=== PATIENT | male | born 1990 | race Caucasian/White ===

== ENCOUNTER 2016-08-21 15:57 | Emergency (ER) | payer OTHER ==
[~2016-08-21] VITALS: Ht 180.3 cm; Wt 70.3 kg
--- NOTE | 2016-08-21 16:49 | ED GI/GU/ABDOMINAL COMPLAINT ---
History of Present Illness General Chief Complaint: General Adult Stated Complaint: PT IS A FLARE UP FROM CROHN'S Source: patient Exam Limitations: no limitations Vital Signs & Intake/Output Vital Signs & Intake/Output Vital Signs Date Time Temp Pulse Resp B/P B/P Pulse O2 O2 Flow FiO2 Mean Ox Delivery Rate 08/21 2107 98.3 86 18 128/82 97 Room Air 08/21 1840 97.9 84 18 126/78 97 Room Air 08/21 1602 98.1 85 16 130/85 99 Room Air ED Intake and Output 08/22 0000 08/21 1200 Intake Total 0 Output Total Balance 0 Intake, Oral 0 Patient 155 lb Weight Weight Reported by Patient Measurement Method Allergies Coded Allergies: codeine (MAKES FLAIR UPS OF CROHNS DISEASE WORSE 08/21/16) fentanyl (EFFECTS CHRONS 08/21/16) Reconcile Medications Dicyclomine Hydrochloride (Bentyl) 10 MG CAPSULE 1 CAP PO TID abdominla pain Ondansetron (Zofran Odt) 4 MG TAB.RAPDIS 1 TAB SL TID nausea Tramadol HCl 50 MG TABLET 1 TAB PO TID pain Triage Note: PT STATES HE HAS CROHNS DISEASE AND IS HAVING A FLAIR UP. PT TAKES 6 MPAND FOLIC ACID AND HYCOSOMINE AND ONE OTHER MED FOR CROHNS AND STOPPED TAKING THEM. PT STATES HE WAS IN REMISSION FOR 8MONTHS AND NOW IT STARTED AGAIN Triage Nurses Notes Reviewed? yes Onset: Abrupt Duration: day(s): (2-3) Timing: single episode today Quality/Severity: cramping, sharpness, severe Severity Numbers: 9 Location: epigastric, generalized abdomen Radiation: no radiation Activities at Onset: none Prior Abdominal Problems: similar symptoms (CROHNS) Past Sexual History: Unobtainable at this time No Modifying Factors: none Modifying Factors: Worsens With: eating, movement. Associated Symptoms: abdominal pain, diarrhea, nausea/vomiting HPI: 25-year-old male with a history of Crohn's disease presents complaining of abdominal pain nausea vomiting and bloody diarrhea. He reports nausea vomiting and bloody diarrhea started 2 weeks ago and has been worsening. Abdominal pain started 2 days ago and is located diffusely in the abdomen. He scrubs a pain as sharp stabbing and cramping that is worse with eating any type of movement. Patient reports a history of Crohn's a feeling this is similar to his Crohn's flares in the past. He is currently not taking any medications for Crohn's because he was in remission. He has not been eating for 2 days but has been tolerating some fluids. He has any recent travel sick contacts fever recent antibiotic use. 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 No other associated symptoms. No history of any abdominal surgeries other than cholecystectomy. (TAN STILL PA-C) Past History Travel History Traveled to [place] past 21 day No Medical History Any Pertinent Medical History? see below for history Gastrointestinal: Crohn's disease Surgical History Surgical History: cholecystectomy Psychosocial History What is your primary language Maltese Tobacco Use: Never used ETOH Use: denies use Illicit Drug Use: denies illicit drug use Family History Hx Contributory? Yes (TAN STILL PA-C) Review of Systems Review of Systems Constitutional: Reports: no symptoms. EENTM: Reports: no symptoms. Respiratory: Reports: no symptoms. Cardiovascular: Reports: no symptoms. GI: Reports: see HPI, abdominal pain, diarrhea, nausea, bloody stool, vomiting. Genitourinary: Reports: no symptoms. Musculoskeletal: Reports: no symptoms. Skin: Reports: no symptoms. Neurological/Psychological: Reports: no symptoms. Hematologic/Endocrine: Reports: no symptoms. Immunologic/Allergic: Reports: no symptoms. All Other Systems: Reviewed and Negative (TAN STILL PA-C) Physical Exam Physical Exam General Appearance: well developed/nourished, alert, awake, anxious, moderate distress Head: atraumatic, normal appearance Eyes: Bilateral: normal appearance, PERRL, EOMI, normal inspection. Ears, Nose, Throat, Mouth: hearing grossly normal, moist mucous membrane, Tympanic normal Neck: normal inspection, supple, full range of motion, normal alignment Respiratory: normal breath sounds, chest non-tender, no respiratory distress, lungs clear Cardiovascular: regular rate/rhythm, edema Peripheral Pulses: 2+ dorsalis pedis (R), 2+ dorsalis pedis (L) Gastrointestinal: normal bowel sounds, soft, guarding, tenderness (DIFFUSE ) Back: normal inspection, normal range of motion, no vertebral tenderness Extremities: normal range of motion Neurologic/Psych: no motor/sensory deficits, awake, alert, oriented x 3, normal gait, normal mood/affect Skin: intact, normal color, warm/dry Comments: Patient appears to be in discomfort holding his abdomen. The abdomen is diffusely tender to palpation in all 4 quadrants. Pain with palpation seems worse in the epigastric area. No surgical scars no distention no organomegaly. Core Measures ACS in differential dx? No Severe Sepsis Present: No Septic Shock Present: No (CHEKO SEO,TAN) Progress Differential Diagnosis: appendicitis, bowel obstruction, diverticulitis, gastritis, hepatitis, hernia, hemorrhoids, ischemic bowel, inflamm bowel dis, pancreatitis, peptic ulcer, PUD/GERD, perforated viscous, SBO, UTI/pyelo Plan of Care: Orders Procedure Date/time Status Add-on Test (ER Only) 08/21 1841 Active PROTHROMBIN TIME 08/21 1749 Complete LIPASE 08/21 1722 Complete LACTIC ACID 08/21 1722 Complete C-REACTIVE PROTEIN 08/21 1722 Complete COMPREHENSIVE METABOLIC PANEL 08/21 1722 Complete CBC WITHOUT DIFFERENTIAL 08/21 1722 Complete AMYLASE 08/21 1722 Complete Laboratory Tests 08/21/161841: PT Cancelled, INR Cancelled 08/21/161749: Anion Gap 12, Estimated GFR > 60, BUN/Creatinine Ratio 16.3, Glucose 73, Lactic Acid 0.7, Calcium 9.6, Total Bilirubin 4.0 H, AST 25, ALT 49, Alkaline Phosphatase 58, C-Reactive Prot, Quant < 0.5, Total Protein 7.5, Albumin 4.6, Globulin 2.9, Albumin/Globulin Ratio 1.6, Amylase 76, Lipase 78, PT 11.8, INR 1.13, CBC w Diff NO MAN DIFF REQ, RBC 5.43, MCV 88.8, MCH 30.5, RDW 12.6, MPV 8.0, Gran % 55.4, Lymphocytes % 34.7, Monocytes % 7.1, Eosinophils % 2.2, Basophils % 0.6, Absolute Granulocytes 4.2, Absolute Lymphocytes 2.6, Absolute Monocytes 0.5, Absolute Eosinophils 0.2, Absolute Basophils 0, PUBS MCHC 34.3 08/21/161722: Urine Color Cancelled, Urine Clarity Cancelled, Urine pH Cancelled, Ur Specific [place] Cancelled, Urine Protein Cancelled, Urine Ketones Cancelled, Urine Nitrite Cancelled, Urine Bilirubin Cancelled, Urine Urobilinogen Cancelled, Ur Leukocyte Esterase Cancelled, Ur Microscopic Cancelled, Urine Hemoglobin Cancelled, Urine Glucose Cancelled 5:49 PM patient seen and evaluated. Patient given 4 of Zofran and 1 of Dilaudid , 50 of tramadol 1 L normal saline. Labs drawn CT scan of the abdomen and pelvis with IV contrast ordered. Will follow up on results and reevaluate patient. 8:41 PM CAT scan shows mild colonic wall thickening that may be suggestive of a IBD flare. Patient reevaluated and is feeling much better. All results reviewed with patient. PT will be discharged home on tramadol Zofran and Bentyl. Offered patient a course of oral steroids to treat possible IBD exacerbation patient refused stating he does not like the way steroids make him feel. He will follow-up with his GI doctor this week. Discussed with Dr. Lee who is in agreement with plan (TAN STILL PA-C) Diagnostic Imaging: Viewed by Me: CT Scan. Initial ED EKG: none Comments: EXAM TYPE: CAT - CT ABD & PELVIS W IV CONTRAST EXAMINATION: CT ABDOMEN AND PELVIS WITH CONTRAST CLINICAL INFORMATION: Diffuse abdominal pain. COMPARISON: MRI abdomen and pelvis 06/13/2015. TECHNIQUE: Multidetector volumetric imaging was performed of the abdomen and pelvis before and after the IV administration of 95 mL of Optiray 320 intravenous contrast. Sagittal and coronal reformatted images were obtained on the technologist's workstation. DLP: 309 mGy-cm FINDINGS: LUNG BASES: The visualized lung bases are unremarkable. LIVER, GALLBLADDER, AND BILIARY TREE: The liver is normal in size, shape, and attenuation. No focal hepatic lesion or biliary ductal dilatation is present. There is mild periportal edema. The gallbladder is surgically absent. PANCREAS: Unremarkable. SPLEEN: Unremarkable. ADRENAL GLANDS: Unremarkable. KIDNEYS AND URETERS: The kidneys are normal in size, shape, and attenuation. No hydronephrosis, hydroureter, or calculi seen. No perinephric stranding. BLADDER: Unremarkable. GASTROINTESTINAL TRACT: Normal anatomic orientation of the stomach relative to the duodenum. Normal caliber of abdominal and pelvic bowel loops, without evidence of obstruction or ileus. Questionable mild circumferential thickening of the ascending colon without significant pericolonic inflammatory changes. Normal-appearing appendix within the right lower quadrant of the abdomen. No organizing intra-abdominal fluid collections or free intraperitoneal air. ABDOMINAL WALL: No significant hernia is appreciated. LYMPH NODES: No significant abdominal or pelvic adenopathy. VASCULAR: Patent abdominal vasculature. Normal course and caliber of the abdominal aorta and its branching vessels, without aneurysmal dilatation. PELVIC VISCERA: Unremarkable. OSSEOUS STRUCTURES: No acute osseous abnormality IMPRESSION: Questionable mild circumferential thickening of the descending colon without significant pericolonic inflammatory changes. This finding is nonspecific and may reflect colonic underdistention although a superimposed mild infectious or inflammatory colitis cannot be excluded in the appropriate clinical setting. (CHEKO SEO,TAN) Departure Departure Disposition: HOME OR SELF CARE Condition: Stable Clinical Impression Primary Impression: Abdominal pain Qualifiers: Abdominal location: generalized Qualified Code: R10.84 - Generalized abdominal pain Secondary Impressions: IBD (inflammatory bowel disease) Referrals: RAMIREZ DAILEY,WINSTON Lehman (PCP/Family) Additional Instructions: Rest and drink plenty of fluids. Take Zofran and Bentyl and tramadol as needed for pain and nausea. A follow-up appointment with a GI doctor this week. Return to the emergency department with any concerns. Please go over all results of today's visit with your primary care doctor. Contact your primary care doctor to let them know you were here in the emergency room. There may be nonspecific findings which may not be related to your visit today here in the emergency room but may require further evaluation and chronic monitoring by your primary care doctor. If you had a laceration today the chance of foreign body always remains. You should follow-up with your primary care doctor for recheck in 3-5 days for a wound check. If you had an x-ray done there is a chance that a fracture could have been missed on initial read and you should follow-up with your primary care doctor for repeat x-rays if symptoms persist. If your blood pressure was elevated here in the emergency room please have rechecked by her primary care doctor within the next 48 hours by your primary care doctor. If you were prescribed a narcotic here in the emergency room or any type of controlled substances you're not allowed to drive while taking this medication or operate any type of heavy machinery. Narcotics can make you feel lightheaded dizziness nausea and can cause constipation. You may need to hand picker a stool softener. Thank you for choosing [facility] emergency room. Please return to the emergency room immediately if you have any other concerns worsening of symptoms. Departure Forms: Customer Survey General Discharge Information Prescriptions: Current Visit Scripts Ondansetron (Zofran Odt) 1 TAB SL TID #10 TAB Dicyclomine Hydrochloride (Bentyl) 1 CAP PO TID #20 CAP Tramadol HCl 1 TAB PO TID #10 TAB (CHEKO SEO,TAN) PA/MASONRY INSTRUCTOR Co-Sign Statement Statement: ED Attending supervision documentation- [] I saw and evaluated the patient. I have also reviewed all the pertinent lab results and diagnostic results. I agree with the findings and the plan of care as documented in the PA's/MASONRY INSTRUCTOR's documentation. [X] I have reviewed the ED Record and agree with the PA's/MASONRY INSTRUCTOR's documentation. [] Additions or exceptions (if any) to the PAs/MASONRY INSTRUCTOR's note and plan are summarized below: [] (SENAIT DAILEY,MIL Thompson)
[2016-08-21 18:02] LABS: ABSOLUTE BASOPHIL COUNT 0 /CUMM (0.0-0.2); ABSOLUTE EOSINOPHIL COUNT 0.2 /CUMM (0.0-0.7); ABSOLUTE GRANULOCYTE CT 4.2 /CUMM (1.4-6.5); ABSOLUTE LYMPH COUNT 2.6 /CUMM (1.2-3.4); ABSOLUTE MONOCYTE COUNT 0.5 /CUMM (0.10-0.60); BASOPHIL % 0.6 % (0.0-2.0); EOSINOPHIL % 2.2 % (0-5); GRANULOCYTE % 55.4 % (42.2-75.2); HEMATOCRIT 48.2 % (42-52); MEAN CORPUSCULAR HGB 30.5 PG (27.0-31.0); MEAN CORPUSCULAR HGB CONC 34.3 G/DL (33.0-37.0); MEAN CORPUSCULAR VOLUME 88.8 FL (80.0-94.0); PLATELET COUNT 189 /CUMM (130-400); RBC DISTRIBUTION WIDTH 12.6 % (11.5-14.5); RED BLOOD CELL CT 5.43 /CUMM (4.70-6.10); WHITE BLOOD CELL COUNT 7.6 /CUMM (4.8-10.8)
[2016-08-21 19:30] LABS: PT 11.8 SEC (9.4-12.5)
--- NOTE | 2016-08-21 19:37 | CT SCAN REPORT ---
EXAMINATION: CT ABDOMEN AND PELVIS WITH CONTRAST CLINICAL INFORMATION: Diffuse abdominal pain. COMPARISON: MRI abdomen and pelvis 06/13/2015. TECHNIQUE: Multidetector volumetric imaging was performed of the abdomen and pelvis before and after the IV administration of 95 mL of Optiray 320 intravenous contrast. Sagittal and coronal reformatted images were obtained on the technologist's workstation. DLP: 309 mGy-cm FINDINGS: LUNG BASES: The visualized lung bases are unremarkable. LIVER, GALLBLADDER, AND BILIARY TREE: The liver is normal in size, shape, and attenuation. No focal hepatic lesion or biliary ductal dilatation is present. There is mild periportal edema. The gallbladder is surgically absent. PANCREAS: Unremarkable. SPLEEN: Unremarkable. ADRENAL GLANDS: Unremarkable. KIDNEYS AND URETERS: The kidneys are normal in size, shape, and attenuation. No hydronephrosis, hydroureter, or calculi seen. No perinephric stranding. BLADDER: Unremarkable. GASTROINTESTINAL TRACT: Normal anatomic orientation of the stomach relative to the duodenum. Normal caliber of abdominal and pelvic bowel loops, without evidence of obstruction or ileus. Questionable mild circumferential thickening of the ascending colon without significant pericolonic inflammatory changes. Normal-appearing appendix within the right lower quadrant of the abdomen. No organizing intra-abdominal fluid collections or free intraperitoneal air. ABDOMINAL WALL: No significant hernia is appreciated. LYMPH NODES: No significant abdominal or pelvic adenopathy. VASCULAR: Patent abdominal vasculature. Normal course and caliber of the abdominal aorta and its branching vessels, without aneurysmal dilatation. PELVIC VISCERA: Unremarkable. OSSEOUS STRUCTURES: No acute osseous abnormality IMPRESSION: Questionable mild circumferential thickening of the descending colon without significant pericolonic inflammatory changes. This finding is nonspecific and may reflect colonic underdistention although a superimposed mild infectious or inflammatory colitis cannot be excluded in the appropriate clinical setting.
[2016-08-21] MEDS ORDERED: BENTYL10 M1 PO (20:46)
[2016-08-21] MEDS ORDERED: ZOFRAN ODT4 M1 SL (20:46)
[2016-08-21] MEDS ORDERED: TRAMADOL HCL50 M1 PO (20:47)
[2016-08-21 21:07] VITALS: BP 128/82
== END 2016-08-21 21:09 ==
LOC: ERH 15:57
PROVIDERS: Physician Assistant Medical
DX: K52.9 Noninfective gastroenteritis and colitis, unspecified (principal)
CPT/HCPCS: 74177; 96374; 96375; J2405